=== PATIENT | male | born 1995 | race African-American/Black ===

== ENCOUNTER 2022-11-15 16:32 | Emergency (ER) | payer OTHER, SELFPAY ==
--- NOTE | ~2022-11-15 | XR_ITS ---
EXAM: XR elbow LT min 3V DATE: 11/15/2022 16:49 HISTORY: injured elbow x 4 weeks ago, still having pain . COMPARISON: None available. FINDINGS: Normal mineralization. No fracture or dislocation. No lytic or blastic lesion. Joint space s are maintained. No erosion or periosteal change. Soft tissue swelling over the olecranon. IMPRESSION: Soft tissue swelling over the olecranon, as can be seen with mild olecranon bursitis. Oth erwise normal left elbow radiograph findings. Reviewed, dictated and finalized at location K. IMPRESSION: Soft tissue swelling over the olecranon, as can be seen with mild o lecranon bursitis. Otherwise normal left elbow radiograph findings.
[2022-11-15 16:36] VITALS: BP 100/71; PULSE 100; RESP 18; TEMP 36.4; O2SAT 100
[2022-11-15 16:39] VITALS: BP 151/105; PULSE 103; RESP 18; TEMP 36.6; O2SAT 99
--- NOTE | 2022-11-15 16:45 | PC.NURSE ---
Patient off unit to Radiology.
--- NOTE | 2022-11-15 17:34 | ED.UPPEXIN ---
HPI - Extremity Injury (Upper) General Chief Complaint: Extremity Injury, Upper Stated Complaint: left elbow pain/injury Time Seen by Provider: 11/15/22 16:36 Source: patient Mode of arrival: ambulatory Limitations: no limitations History of Present Illness HPI narrative: Patient is a 27 y/o male who presents to the ED with c/o left elbow swelling. Patient reports he tripped and fell 3 weeks ago and landed directly on his left elbow. He sustained a large abrasion at that time, which has since healed. He did have pain with range of motion of his left elbow for a couple of weeks afterward, but was not evaluated after the fall. He then noticed inflammation and swelling to his left elbow this morning with increased pain, which prompted his presentation. He denies any further injury. Denies fever, numbness, tingling. He has not taken anything for the pain. Related Data Allergies Allergy/AdvReac Type Severity Reaction Status Date / Time No Known Allergies Allergy Mild Verified 11/15/22 16:43 Review of Systems Review of Systems: CONSTITUTIONAL: Denies fever, chills, or sweats. SKIN: See HPI. MUSCULOSKELETAL: See HPI. NEUROLOGIC: Denies tingling, numbness, or weakness. All systems reviewed & are unremarkable except as noted in HPI and below PMFSH Past Medical History Medical History (Updated 11/15/22 @ 18:24 by Olimpia Gonsales PA-C) No pertinent past medical history Surgical History Surgical History (Updated 11/15/22 @ 18:24 by Olimpia Gonsales PA-C) No pertinent past surgical history Social History Social History (Updated 11/15/22 @ 18:24 by Olimpia Gonsales PA-C) Smoking status: Never smoker Exam Narrative: GENERAL: Well appearing, obese, non-toxic, in no acute distress. HEAD: Normocephalic, atraumatic. NECK: Supple. No adenopathy, no masses. RESPIRATORY: Airway patent, respirations nonlabored. Clear to auscultation bilaterally, no rales, rhonchi, wheezing. CARDIOVASCULAR: Regular rate and rhythm without murmurs, rubs, or gallops. Radial pulses 2+ and equal bilaterally. MUSCULOSKELETAL: Moves all extremities. Strength/ROM intact without gross deformities. Full range of motion of left elbow. Mild amount of swelling/fluctuance noted over olecranon of left elbow, consistent with olecranon bursitis. Mild tenderness directly over olecranon. No warmth or erythema. SKIN: Warm, dry, normal color. No rashes. NEURO: A&O X3. Speech clear. Cranial nerves II-XII grossly intact. Steady gait. No ataxic movements. PSYCHIATRIC: Appropriate mood and affect. Normal interaction. Course Vital Signs Vital signs: Vital Signs Temperature 97.5 F L 11/15/22 16:36 Pulse Rate 100 11/15/22 16:36 Respiratory Rate 18 11/15/22 16:36 Blood Pressure 100/71 11/15/22 16:36 Pulse Oximetry 100 11/15/22 16:36 Temperature 97.9 F 11/15/22 16:39 Pulse Rate 103 H 11/15/22 16:39 Respiratory Rate 18 11/15/22 16:39 Blood Pressure 151/105 H 11/15/22 16:39 Pulse Oximetry 99 11/15/22 16:39 Oxygen Delivery Room Air 11/15/22 16:39 MDM - Extremity Injury (Upper) MDM Narrative Medical decision making narrative: Patient presented to ED with inflammation and swelling to left elbow noticed this morning, history of fall with direct injury 3 weeks ago. No further injury since then. Patient's vitals stable upon arrival. Exam consistent with olecranon bursitis. X-ray of left elbow without fracture or dislocation, does also show findings consistent with mild olecranon bursitis. Patient with full ROM of L elbow. No erythema or warmth to left elbow to suggest infected bursa or septic joint. Discussed diagnosis and management with patient, as well as return precautions. Will provide orthopedic information for follow-up if needed. Will prescribe naproxen for further anti-inflammatory effect. Patient agrees with plan. Discharged in stable condition. Medical Records Attestation: I reviewed the patient'
[2022-11-15] MEDS: NAPROXEN 250 MG TABLET 500 MG PO (18:29)
== END 2022-11-15 18:39 | disposition home or self-care (01) ==
PROVIDERS: Emergency Provider Physician Assistant
DX: M70.22 Olecranon bursitis, left elbow (principal)
CPT/HCPCS: 73080; 99283; A9270